=== PATIENT | female | born 1945 | race Caucasian/White ===

== ENCOUNTER → 2016-12-20 | Outpatient (CLI) | payer MEDICARE ==
[~2016-12-20] VITALS: Ht 170.2 cm; Wt 61.0 kg
[~2016-12-20] MED LIST: ACTO35TA PO; APREPITANT 40 MG CAP ONE; CALC250T PO; CHLORHEXIDINE GLUCONATE 2 % 1 PACK (2 CLOTHS) TOPICAL PRN; CRANCAP2 PO; DEXAMETHASONE SOD PHOS 4 MG/ML VIAL IV ONE; DO NOT ADM ANY ANTICOAGULANT DRUGS PRN; FISH1000 PO; GLUC100017 PO; GLUCAGON 1 MG/ML VIAL IV PUSH ONE; GLUCTAB47 PO; INSULIN HUMAN REGULAR 1,000 UNITS/10 ML VIAL SQ PRN; IOHEXOL 350 MG/ML 50 ML BTL (for RAD DIAG) OTHER ONE; LIDOCAINE HCL 1% PF 5 ML AMPULE OTHER ONE; LOVA1TAB47 PO; LOVA40TA PO; METOPROLOL TARTRATE 25 MG TAB PO PRN; OMEG300C5 PO; ONDANSETRON HCL 4 MG/2 ML VIAL IV PUSH ONE; OYST500T77 PO; PHENYLEPH/NS 1000 MCG/10 ML SYR IV ONE; POVIDONE IODINE 5% (ANTISEPSIS KIT) 4 APPLICATIONS EACH NARE PRN; PROPOFOL 200 MG/20 ML AMP IV ONE; SINCALIDE 5 MCG/5 ML VIAL IV PUSH ONE; SODIUM CHLORID 0.9% 500 ML IV PRN; ePHEDrine/NS 25 MG/5 ML SYR IV ONE
[2016-12-20] MEDS: LACTATED RINGER'S 1000 ML IV PRN ×4 (13:44→16:45)
--- NOTE | 2016-12-20 14:47 | EKG ---
Date Performed: 12/20/2016 Time Performed: 13:33:52 PTAGE: 71 years EKG: SINUS BRADYCARDIA BORDERLINE ECG No significant change from prior electrocardiogram. PREVIOUS TRACING : 02/10/2008 08.40 DOCTOR: Terrance Mattson Interpretating Date/Time 12/20/2016 14:44:44
--- NOTE | 2016-12-20 16:33 | GIPROC ---
[facility] [address] [facility]. [facility], [address] ERCP PROCEDURE REPORT EXAM DATE: 12/20/2016 PATIENT NAME: Nori Wilder MR #: [id number] BIRTHDATE: 1945 ATTENDING: Cecilio Mitchell MD ORDER #: [id number] SOLDERING MACHINE SETTER: Lois Andrews and Joanna Mcdowell STATUS: outpatient INDICATIONS: The patient is a 71 yr old female here for an ERCP due to abdominal pain of suspected biliary origin, abnormal abdominal CT, abnormal MRCP, and established bile duct stone(s) PROCEDURE PERFORMED: ERCP with stent placement MEDICATIONS: None and Per Anesthesia. CONSENT: The patient understands the risks and benefits of the procedure and understands that these risks include, but are not limited to: sedation, allergic reaction, infection, perforation and/or bleeding. Alternative means of evaluation and treatment include, among others: physical exam, x-rays, and/or surgical intervention. The patient elects to proceed with this endoscopic procedure. medical equipment was checked for proper function. Hand hygiene and appropriate measures for infection prevention was taken. After the risks, benefits and alternatives of the procedure were thoroughly explained, Informed was verified, confirmed and timeout was successfully executed by the treatment team. With the patient in left semi-prone position, medications were administered intravenously.The Pentax [id number] was passed from the mouth into the esophagus and further advanced from the esophagus into the stomach. From stomach scope was directed to the second portion of the duodenum. Major papilla was aligned with the duodenoscope. The scope position was confirmed fluoroscopically. Rest of the findings/therapeutics are given below. The scope was then completely withdrawn from the patient and the procedure completed. The pulse, BP, and O2 saturation were monitored and documented by the physician and the nursing staff throughout the entire procedure. The patient was cared for as planned according to standard protocol. The patient was then discharged to recovery in stable condition and with appropriate post procedure care. The ampulla was located the second portion of the duodenum. The ampulla was small and difficult to locate. The biliary tree appeared normal with no evidence of stricture or dilation. Very small distal cbd. No stones seen. Patent cystic dust. 7 x 8 cm stent placed. ADVERSE EVENT: There were no complications. IMPRESSIONS: 1. The ampulla was small and difficult to locate 2. The biliary tree appeared normal with no evidence of stricture or dilation 3. Very small distal cbd. No stones seen. Patent cystic dust. 7 x 8 cm stent placed RECOMMENDATIONS: 1. Liver enzymes 2. Surgery REPEAT EXAM: Return 8 weeks ERCP Cecilio Mitchell MD eSigned: Cecilio Mitchell MD 12/20/2016 4:33 PM cc: Kevin Neumann M.D.
--- NOTE | 2016-12-20 17:02 | RADRPT ---
EXAM DATE/TIME: 12/20/2016 15:48 [facility] COMPARISON: No previous studies available for comparison. INDICATIONS : ERCP in operating room. FLUORO TIME: 5.4 minutes IMAGE COUNT: 5 CONTRAST: Instilled by Ordering Physician MEDICAL HISTORY : none available SURGICAL HISTORY : None. ENCOUNTER: Initial ACUITY: 3 days PAIN SCORE: Non-responsive. LOCATION: Bilateral upper quadrant FINDINGS: An ERCP was performed by the ordering physician. The images demonstrate some stricturing in the distal common bile duct. There some small filling defe cts seen just below the cystic duct. The visualized portion of the intrahepatic biliary system is nor mal in caliber. Final images demonstrate a internal biliary stent in good position. CONCLUSION: 1. Possible stricture of the distal common duct. Final images demonstrate a well placed stent across this. Parish Rojo MD on December 20, 2016 at 16:59 Board Certified Radiologist. This report was verified electronically.
[2016-12-20 17:35] VITALS: BP 123/69; PULSE 54; RESP 18; TEMP 97.7; O2SAT 97
== END ==
LOC: HSDC 13:01
PROVIDERS: ATTEND Internal Medicine Gastroenterology
DX: R10.9 Unspecified abdominal pain (principal); R93.5 Abnormal findings on diagnostic imaging of other abdominal regions, including retroperitoneum; K80.50 Calculus of bile duct without cholangitis or cholecystitis without obstruction; R00.1 Bradycardia, unspecified
CPT/HCPCS: 00740; 43274; 74330; 93005; C1769; C2625; J2805; J7120; J8501; Q9967; J1100; J2370; J2405; J3010

== ENCOUNTER → 2016-12-27 | Day surgery (SDC) | payer MEDICARE ==
[~2016-12-27] VITALS: Ht 170.2 cm; Wt 60.8 kg
[~2016-12-27] MED LIST changes: +*ONDANSETRON 4 MG VIAL PERIprocedural Use ONLY ONE; +ACETAMINOPHEN 1000 MG/100 ML 100 ML IV ONE; +ACETAMINOPHEN 1000 MG/100 ML 100 ML IV SCH; -ACTO35TA PO; -APREPITANT 40 MG CAP ONE; +BUPIVACAINE/EPINEPHRINE 0.5% PF 10 ML VIAL ONE; +FAMOTIDINE 20 MG/2 ML VIAL ONE; -FISH1000 PO; -GLUCAGON 1 MG/ML VIAL IV PUSH ONE; -GLUCTAB47 PO; -IOHEXOL 350 MG/ML 50 ML BTL (for RAD DIAG) OTHER ONE; +KETOROLAC TROMETHAMINE 30 MG/ML (IVP) VIAL IV PUSH ONE; +LACTATED RINGER'S 1000 ML INJ 1,000 ML IV ONE; +LACTATED RINGER'S 1000 ML IV PRN; -LOVA1TAB47 PO; +MIDAZOLAM HCL 2 MG/2 ML VIAL IV ONE; +MORPHINE SULFATE 4 MG/ML INJ IV PRN; +ONDANSETRON HCL 4 MG/2 ML VIAL IV PRN; -OYST500T77 PO; -PHENYLEPH/NS 1000 MCG/10 ML SYR IV ONE; +ROCURONIUM INJ 50 MG/5 ML SYRINGE IV PUSH ONE; -SINCALIDE 5 MCG/5 ML VIAL IV PUSH ONE; +SUGAMMADEX SODIUM 200 MG/2 ML VIAL IV PUSH ONE; +ceFAZolin 2 GM PREMIX 50 ML IV SCH; +ceFAZolin 2 GM PREMIX 50 ML ONE; +oxyCODONE/ACETAMINOPHEN 5 MG/325 MG TAB PO PRN
--- NOTE | 2016-12-27 11:29 | PD.OP ---
cc: Kevin Chris MD; Glenny Neumann MD Operative Report Date of Surgery: Dec 27, 2016 Preoperative Diagnosis: Chronic cholecystitis and cholelithiasis Postoperative Diagnosis: Chronic cholecystitis and cholelithiasis Procedure: Laparoscopic cholecystectomy Anesthesia: General endotracheal Surgeon: Kevin Chris Postal Inspector(s): Dale Aguilar MS 3 Operation and Findings: Operative findings: The patient was found to have a thick-walled, chronically diseased-appearing gallbladder. The cystic duct was seen to be of normal caliber. Common bile duct had a stent placed previously. No other abnormalities were noted. Operative procedure: Patient brought to the operating room and after satisfactory general endotracheal anesthesia was obtained, the abdomen was prepped and draped in usual sterile fashion. 0.5% Marcaine with epinephrine was used to infiltrate skin for local anesthesia. Small incision was made below the umbilicus and a 5 mm trocar was inserted into the peritoneal cavity under direct visualization. The camera was reinserted after instilling carbon oxide to a pressure of 15 mmHg. The camera was then reinserted and visceral injury inspected for, with none being identified. Under direct visualization a 12 port and a 5 port placed in the upper midline. The fundus the gallbladder was grasped retracted superiorly over the right lobe of the liver. Adhesions were taken down with the Harmonic scalpel after which Delcid's pouch was grasped and retracted inferiorly and laterally, placing tension on the hepatoduodenal ligament. The cystic duct cystic artery were both dissected free bluntly without incident. Both were dissected free from the reduction within the gallbladder medially to obtain the critical view. The cystic artery was then dissected completely free near its gallbladder junction and was divided with a Harmonic scalpel. Likewise the cystic duct was divided near central the gallbladder using a Harmonic scalpel. The Harmonic scalpel was then used to completely dissected gallbladder free from the liver bed. Is placed within an Endo Catch bag and brought through the upper midline incision where his entity of its bile to allow egress without problem. The gallbladder was then passed for permanent pathology. The trochars reinserted and the liver bed inspected. It was found to be hemostatic. The cystic duct and cystic artery stumps were both inspected and found to be intact with no leakage of bile or blood. The carbon dioxide was then vented as completely as possible the atmosphere. The ports were removed and the 12 mm fascial defect closed with interrupted 0 Vicryl suture. Skin was closed with interrupted 4-0 Monocryl subcuticular stitches. Steri-Strips were applied the patient was then awakened and taken from the operating room, in satisfactory condition, having tolerated the procedure problem. Estimated blood loss was less than 5 mL's. The isthmus ring, sponge, and needle counts were reported as being correct 2 at the end of procedure. Kevin Chris MD Dec 27, 2016 11:29
[2016-12-27 13:20] VITALS: BP 133/70; PULSE 57; RESP 18; TEMP 97.6; O2SAT 98
== END | disposition home or self-care (01) ==
LOC: HSDC 07:46
PROVIDERS: ATTEND Surgery
DX: K80.12 Calculus of gallbladder with acute and chronic cholecystitis without obstruction (principal); E78.5 Hyperlipidemia, unspecified; Z79.899 Other long term (current) drug therapy
CPT/HCPCS: 00790; 47562; 88304; J0131; J0690; J1100; J2250; J2405; J3010; J7120

== ENCOUNTER → 2017-03-11 | Outpatient (CLI) | payer MEDICARE ==
[~2017-03-11] VITALS: Ht 170.2 cm; Wt 58.5 kg
[~2017-03-11] MED LIST changes: -*ONDANSETRON 4 MG VIAL PERIprocedural Use ONLY ONE; -ACETAMINOPHEN 1000 MG/100 ML 100 ML IV ONE; -ACETAMINOPHEN 1000 MG/100 ML 100 ML IV SCH; +APREPITANT 40 MG CAP ONE; -BUPIVACAINE/EPINEPHRINE 0.5% PF 10 ML VIAL ONE; -CALC250T PO; +CALC600C3 PO; -DEXAMETHASONE SOD PHOS 4 MG/ML VIAL IV ONE; -DO NOT ADM ANY ANTICOAGULANT DRUGS PRN; -FAMOTIDINE 20 MG/2 ML VIAL ONE; +FISHCAP4 PO; +GLUC100013 PO; -GLUC100017 PO; -INSULIN HUMAN REGULAR 1,000 UNITS/10 ML VIAL SQ PRN; +IOHEXOL 350 MG/ML 50 ML BTL (for RAD DIAG) OTHER ONE; -KETOROLAC TROMETHAMINE 30 MG/ML (IVP) VIAL IV PUSH ONE; -LACTATED RINGER'S 1000 ML INJ 1,000 ML IV ONE; -LIDOCAINE HCL 1% PF 5 ML AMPULE OTHER ONE; -MIDAZOLAM HCL 2 MG/2 ML VIAL IV ONE; -MORPHINE SULFATE 4 MG/ML INJ IV PRN; -OMEG300C5 PO; -ONDANSETRON HCL 4 MG/2 ML VIAL IV PRN; -ONDANSETRON HCL 4 MG/2 ML VIAL IV PUSH ONE; +ONDANSETRON HCL 4 MG/2 ML VIAL ONE; -PROPOFOL 200 MG/20 ML AMP IV ONE; -ROCURONIUM INJ 50 MG/5 ML SYRINGE IV PUSH ONE; -SUGAMMADEX SODIUM 200 MG/2 ML VIAL IV PUSH ONE; -ceFAZolin 2 GM PREMIX 50 ML IV SCH; -ceFAZolin 2 GM PREMIX 50 ML ONE; -ePHEDrine/NS 25 MG/5 ML SYR IV ONE; -oxyCODONE/ACETAMINOPHEN 5 MG/325 MG TAB PO PRN
--- NOTE | 2017-03-11 12:55 | GIPROC ---
[facility] [address] [facility]. [facility], [address] ERCP PROCEDURE REPORT EXAM DATE: 03/11/2017 PATIENT NAME: Nori Wilder MR #: [id number] BIRTHDATE: 1945 ATTENDING: Cecilio Mitchell MD ORDER #: [id number] TRAY DRIER: Lois Andrews RN STATUS: outpatient INDICATIONS: The patient is a 71 yr old female here for an ERCP due to follow-up of bile duct stone(s) and stent removal PROCEDURE PERFORMED: ERCP with stent placement ERCP, Level 2 MEDICATIONS: None and Per Anesthesia. CONSENT: The patient understands the risks and benefits of the procedure and understands that these risks include, but are not limited to: sedation, allergic reaction, infection, perforation and/or bleeding. Alternative means of evaluation and treatment include, among others: physical exam, x-rays, and/or surgical intervention. The patient elects to proceed with this endoscopic procedure. medical equipment was checked for proper function. Hand hygiene and appropriate measures for infection prevention was taken. After the risks, benefits and alternatives of the procedure were thoroughly explained, Informed was verified, confirmed and timeout was successfully executed by the treatment team. With the patient in left semi-prone position, medications were administered intravenously.The Pentax [id number]-[id number] was passed from the mouth into the esophagus and further advanced from the esophagus into the stomach. From stomach scope was directed to the second portion of the duodenum. Major papilla was aligned with the duodenoscope. The scope position was confirmed fluoroscopically. Rest of the findings/therapeutics are given below. The scope was then completely withdrawn from the patient and the procedure completed. The pulse, BP, and O2 saturation were monitored and documented by the physician and the nursing staff throughout the entire procedure. The patient was cared for as planned according to standard protocol. The patient was then discharged to recovery in stable condition and with appropriate post procedure care. Previously placed stent removed. Nl CBD. Balloon sweep x 2 with 11.5 mm balloon. ADVERSE EVENT: There were no complications. IMPRESSIONS: Previously placed stent removed. Nl CBD. Balloon sweep x 2 with 11.5 mm balloon RECOMMENDATIONS: Follow-up: GI clinic 2 week(s) REPEAT EXAM: Return as needed for ERCP Cecilio Mitchell MD eSigned: Cecilio Mitchell MD 03/11/2017 12:54 PM cc: Glenny Neumann M.D.
--- NOTE | 2017-03-11 12:57 | GIPROC ---
[facility] [address] [facility]. [facility], [address] COLONOSCOPY PROCEDURE REPORT EXAM DATE: 03/11/2017 PATIENT NAME: Nori Wilder MR #: [id number] BIRTHDATE: 1945 ENDOSCOPIST: Cecilio Mitchell MD ORDER #: [id number] [employer] SALESPERSON: Lois Andrews RN STATUS: outpatient INDICATIONS: The patient is a 71 yr old female here for a colonoscopy due to high risk patient with personal history of colonic polyps PROCEDURE PERFORMED: Colonoscopy, diagnostic MEDICATIONS: None and Per Anesthesia. PREP QUALITY: The [place] Bowel Prep Score was Right colon 2, Mid colon 3, and Left colon 3. Total = 8. PREP TYPE:GoLytely ESTIMATED BLOOD LOSS: None CONSENT: The patient understands the risks and benefits of the procedure and understands that these risks include, but are not limited to: sedation, allergic reaction, infection, perforation and/or bleeding. Alternative means of evaluation and treatment include, among others: physical exam, x-rays, and/or surgical intervention. The patient elects to proceed with this endoscopic procedure. medical equipment was checked for proper function. Hand hygiene and appropriate measures for infection prevention was taken. After the risks, benefits and alternatives of the procedure were thoroughly explained, Informed consent was verified, confirmed and timeout was successfully executed by the treatment team. A digital exam revealed external hemorrhoids The Pentax EC-[id number] endoscope was introduced through the anus and advanced to the cecum, which was identified by both the appendix and ileocecal valve. The instrument was then slowly withdrawn as the colon was fully examined. COLON FINDINGS: The colonic mucosa appeared normal. Retroflexed views revealed internal hemorrhoids and Retroflexed views revealed medium internal hemorrhoids The scope was then completely withdrawn from the patient and the procedure terminated. PROCEDURE WITHDRAWAL TIME:6minutes ADVERSE EVENTS: There were no complications. IMPRESSIONS: 1. The colonic mucosa appeared normal 2. Retroflexed views revealed internal hemorrhoids 3. Retroflexed views revealed medium internal hemorrhoids 4. Revealed external hemorrhoids RECOMMENDATIONS: 1. Benefiber 2 tsp daily 2. Continue surveillance 3. Yearly hemoccult RECALL: Return 5 years Colonoscopy Cecilio Mitchell MD eSigned: Cecilio Mitchell MD 03/11/2017 12:57 PM cc: Glenny Rhoades M.D.
[2017-03-11 13:00] VITALS: TEMP 97.6
[2017-03-11 13:30] VITALS: BP 136/73; PULSE 54; RESP 16; O2SAT 95
--- NOTE | 2017-03-11 13:52 | RADRPT ---
EXAM DATE/TIME: 03/11/2017 12:20 [facility] COMPARISON: GI LAB ERCP, December 20, 2016, 15:48. INDICATIONS : Stent swap. FLUORO TIME: 2.4 minutes IMAGE COUNT: 2 CONTRAST: Instilled by Ordering Physician MEDICAL HISTORY : None. SURGICAL HISTORY : None. ENCOUNTER: Subsequent ACUITY: 1 day PAIN SCORE: Non-responsive. LOCATION: Right upper quadrant abdomen FINDINGS: An ERCP was performed by the ordering physician. 5 films were submitted There no residual filling defects. Silastic stent in good position on film # 5. CONCLUSION: ERCP as above. Chino Rojo MD FACR on March 11, 2017 at 13:49 Board Certified Radiologist. This report was verified electronically.
== END ==
LOC: HSDC 08:22
PROVIDERS: ATTEND Internal Medicine Gastroenterology
DX: Z12.11 Encounter for screening for malignant neoplasm of colon (principal); Z86.010 Personal history of colon polyps; K64.4 Residual hemorrhoidal skin tags; K64.8 Other hemorrhoids; Z87.19 Personal history of other diseases of the digestive system
CPT/HCPCS: 00740; 43275; 74330; C1769; J2405; J7120; J8501; Q9967